=== PATIENT | female | born 1980 | race American Indian/Alaskan Native ===

== ENCOUNTER 2020-05-14 22:21 | Emergency (ER) | payer BC ==
[2020-05-14 23:27] LABS: Bilirubin,Urine NEG (Negative); Blood,Urine SM (Negative); Color,Urine Straw (Yellow); Protein,Urine <15 mg/dL mg/dL (Negative); Urobilinogen,Urine < 2.0 mg/dL (<2.0); WBC,Urine < 1.0 /HPF (0.0-6.0)
--- NOTE | 2020-05-15 00:02 | Emergency Department Report ---
ED Palpitations HPI - General Chief Complaint: Chest Pain Stated Complaint: HEART PAL/LEG AND ARM TINGLING/SHARP CHEST PAIN Time Seen by Provider: 05/14/20 23:22 Source: patient Mode of arrival: Ambulatory Limitations: No Limitations - History of Present Illness Initial Comments: 39-year-old female the past medical history with GERD and recurrent palpitations since February 2020 presents to the hospital complaining of palpitations this evening. Patient was about to go up the stairs when she started to feel her heart racing felt lightheaded. Her heart rate was 114 lasting for approximately 10 minutes to settle back down to the 90s. She denies associated shortness of breath, nausea, vomiting, or diaphoresis. Patient has had intermittent left-si ded sharp chest pain. She also complains of intermittent left arm and occasional left leg numbness since January 2020. Patient is receiving outpatient work-up. Earlier this month on April 19 she wore a Holter monitor for 48 hours in which she had no abnormal events. Patient states she did not have any palpitations during her Holter monitor use but has had them since the Holter monitor was discontinued. She denies control pill use, calf tenderness, leg edema, recent travel, history of PE/DVT. He states he has had a normal thyroid testing performed by her doctor and this is her first ED visit since symptoms have started intermittently - Related Data Allergies Allergy/AdvReac Type Severity Reaction Status Date / Time codeine Allergy Unknown Verified 05/14/20 22:37 ED Review of Systems ROS: Stated complaint: HEART PAL/LEG AND ARM TINGLING/SHARP CHEST PAIN Other details as noted in HPI Comment: All other systems reviewed and negative ED Past Medical Hx - Past Medical History Previous Medical History?: Yes Hx GERD: Yes Additional medical history: PALPITATIONS - Surgical History Past Surgical History?: No - Social History Smoking Status: Never Smoker Substance Use Type: None ED Physical Exam - General Limitations: No Limitations - Other Other exam information: General: No acute distress Head: Atraumatic Eyes: normal appearance ENT: Moist mucous membranes Neck: Normal appearance, no midline tenderness Chest: Clear to auscultation bilaterally, chest wall nontender CV: Regular rate and rhythm Abdomen: Soft, normal bowel sounds, nontender, nondistended, no rebound or guarding Back: Normal inspection Extremity: Normal inspection, full range of motion, no calf tenderness or leg edema Neuro: Alert O x 3, no facial asymmetry, speech clear, no gross motor sensory deficit, qyqwll-vcnp-bjkaso function intact, extraocular movement intact. Psych: Appropriate behavior Skin: No rash ED Course Vital Signs 05/14/20 05/14/20 05/14/20 22:28 23:24 23:37 Temperature 98.8 F Pulse Rate 102 H 102 H Respiratory 18 18 20 Rate Blood Pressure 136/86 O2 Sat by Pulse 98 92 Oximetry 05/14/20 05/15/20 05/15/20 23:45 00:01 00:15 Temperature Pulse Rate 83 89 79 Respiratory 22 25 H 20 Rate Blood Pressure 133/80 117/72 124/75 O2 Sat by Pulse 95 97 96 Oximetry 05/15/20 05/15/20 05/15/20 00:31 00:45 01:01 Temperature Pulse Rate 80 74 85 Respiratory 16 22 28 H Rate Blood Pressure 116/63 118/67 123/73 O2 Sat by Pulse 98 96 96 Oximetry 05/15/20 05/15/20 05/15/20 01:15 01:31 01:45 Temperature Pulse Rate 77 77 76 Respiratory 21 19 25 H Rate Blood Pressure 111/68 114/83 114/83 O2 Sat by Pulse 96 96 97 Oximetry ED Medical Decision Making - Lab Data Result diagrams: 05/14/20 22:50 05/14/20 22:50 Lab Results 05/14/20 05/14/20 05/14/20 Range/Units 22:50 22:50 23:38 WBC 9.5 (4.5-11.0) K/mm3 RBC 4.56 (3.65-5.03) M/mm3 Hgb 14.1 (10.1-14.3) gm/dl Hct 42.4 (30.3-42.9) % MCV 93 (79-97) fl MCH 31 (28-32) pg MCHC 33 (30-34) % RDW 14.0 (13.2-15.2) % Plt Count 406 (140-440) K/mm3 Lymph % (Auto) 24.7 (13.4-35.0) % [place] % (Auto) 3.2 (0.0-7.3) % Eos % (Auto) 2.2 (0.0-4.3) % Baso % (Auto) 1.1 (0.0-1.8) % Lymph # (Auto) 2.3 (1.2-5.4) K/mm3 [place] # (Auto) 0.3 (0.0-0.8) K/mm3 Eos # (Auto) 0.2 (0.0-0.4) K/mm3 Baso # (Auto) 0.1 (0.0-0.1) K/mm3 Seg Neutrophils % 68.8 (40.0-70.0) % Seg Neutrophils # 6.5 (1.8-7.7) K/mm3 D-Dimer (0-234) ng/mlDDU Sodium 141 (137-145) mmol/L Potassium 4.5 (3.6-5.0) mmol/L Chloride 103.7 (98-107) mmol/L Carbon Dioxide 27 (22-30) mmol/L Anion Gap 15 mmol/L BUN 12 (7-17) mg/dL Creatinine 1.0 (0.6-1.2) mg/dL Estimated GFR > 60 ml/min BUN/Creatinine Ratio 12 % Glucose 87 (65-100) mg/dL Calcium 9.1 (8.4-10.2) mg/dL Total Bilirubin 0.20 (0.1-1.2) mg/dL AST 18 (5-40) units/L ALT 17 (7-56) units/L Alkaline Phosphatase 65 (35-129) units/L Troponin T (0.00-0.029) ng/mL Total Protein 6.9 (6.3-8.2) g/dL Albumin 4.3 (3.9-5) g/dL Albumin/Globulin Ratio 1.7 % HCG, Qual (Negative) Urine Color (Yellow) Urine Turbidity (Clear) Urine pH (5.0-7.0) Ur Specific [place] (1.003-1.030) Urine Protein (Negative) mg/dL Urine Glucose (UA) (Negative) mg/dL Urine Ketones (Negative) mg/dL Urine Blood (Negative) Urine Nitrite (Negative) Urine Bilirubin (Negative) Urine Urobilinogen (<2.0) mg/dL Ur Leukocyte Esterase (Negative) Urine WBC (Auto) (0.0-6.0) /HPF Urine RBC (Auto) (0.0-6.0) /HPF U Epithel Cells (Auto) (0-13.0) /HPF Urine Opiates Screen Presumptive negative Urine Methadone Screen Presumptive negative Ur Barbiturates Screen Presumptive negative Ur Phencyclidine Scrn Presumptive negative Ur Amphetamines Screen Presumptive negative U Benzodiazepines Scrn Presumptive negative Urine Cocaine Screen Presumptive negative U Marijuana (THC) Screen Presumptive positive Drugs of Abuse Note Disclamer 05/14/20 05/15/20 05/15/20 Range/Units Unknown 00:00 00:29 WBC (4.5-11.0) K/mm3 RBC (3.65-5.03) M/mm3 Hgb (10.1-14.3) gm/dl Hct (30.3-42.9) % MCV (79-97) fl MCH (28-32) pg MCHC (30-34) % RDW (13.2-15.2) % Plt Count (140-440) K/mm3 Lymph % (Auto) (13.4-35.0) % [place] % (Auto) (0.0-7.3) % Eos % (Auto) (0.0-4.3) % Baso % (Auto) (0.0-1.8) % Lymph # (Auto) (1.2-5.4) K/mm3 [place] # (Auto) (0.0-0.8) K/mm3 Eos # (Auto) (0.0-0.4) K/mm3 Baso # (Auto) (0.0-0.1) K/mm3 Seg Neutrophils % (40.0-70.0) % Seg Neutrophils # (1.8-7.7) K/mm3 D-Dimer 135.00 (0-234) ng/mlDDU Sodium (137-145) mmol/L Potassium (3.6-5.0) mmol/L Chloride (98-107) mmol/L Carbon Dioxide (22-30) mmol/L Anion Gap mmol/L BUN (7-17) mg/dL Creatinine (0.6-1.2) mg/dL Estimated GFR ml/min BUN/Creatinine Ratio % Glucose (65-100) mg/dL Calcium (8.4-10.2) mg/dL Total Bilirubin (0.1-1.2) mg/dL AST (5-40) units/L ALT (7-56) units/L Alkaline Phosphatase (35-129) units/L Troponin T < 0.010 (0.00-0.029) ng/mL Total Protein (6.3-8.2) g/dL Albumin (3.9-5) g/dL Albumin/Globulin Ratio % HCG, Qual (Negative) Urine Color Straw (Yellow) Urine Turbidity Clear (Clear) Urine pH 6.0 (5.0-7.0) Ur Specific [place] 1.008 (1.003-1.030) Urine Protein <15 mg/dl (Negative) mg/dL Urine Glucose (UA) Neg (Negative) mg/dL Urine Ketones Neg (Negative) mg/dL Urine Blood Sm (Negative) Urine Nitrite Neg (Negative) Urine Bilirubin Neg (Negative) Urine Urobilinogen < 2.0 (<2.0) mg/dL Ur Leukocyte Esterase Neg (Negative) Urine WBC (Auto) < 1.0 (0.0-6.0) /HPF Urine RBC (Auto) 1.0 (0.0-6.0) /HPF U Epithel Cells (Auto) < 1.0 (0-13.0) /HPF Urine Opiates Screen Urine Methadone Screen Ur Barbiturates Screen Ur Phencyclidine Scrn Ur Amphetamines Screen U Benzodiazepines Scrn Urine Cocaine Screen U Marijuana (THC) Screen Drugs of Abuse Note 05/15/20 Range/Units 00:29 WBC (4.5-11.0) K/mm3 RBC (3.65-5.03) M/mm3 Hgb (10.1-14.3) gm/dl Hct (30.3-42.9) % MCV (79-97) fl MCH (28-32) pg MCHC (30-34) % RDW (13.2-15.2) % Plt Count (140-440) K/mm3 Lymph % (Auto) (13.4-35.0) % [place] % (Auto) (0.0-7.3) % Eos % (Auto) (0.0-4.3) % Baso % (Auto) (0.0-1.8) % Lymph # (Auto) (1.2-5.4) K/mm3 [place] # (Auto) (0.0-0.8) K/mm3 Eos # (Auto) (0.0-0.4) K/mm3 Baso # (Auto) (0.0-0.1) K/mm3 Seg Neutrophils % (40.0-70.0) % Seg Neutrophils # (1.8-7.7) K/mm3 D-Dimer (0-234) ng/mlDDU Sodium (137-145) mmol/L Potassium (3.6-5.0) mmol/L Chloride (98-107) mmol/L Carbon Dioxide (22-30) mmol/L Anion Gap mmol/L BUN (7-17) mg/dL Creatinine (0.6-1.2) mg/dL Estimated GFR ml/min BUN/Creatinine Ratio % Glucose (65-100) mg/dL Calcium (8.4-10.2) mg/dL Total Bilirubin (0.1-1.2) mg/dL AST (5-40) units/L ALT (7-56) units/L Alkaline Phosphatase (35-129) units/L Troponin T (0.00-0.029) ng/mL Total Protein (6.3-8.2) g/dL Albumin (3.9-5) g/dL Albumin/Globulin Ratio % HCG, Qual Negative (Negative) Urine Color (Yellow) Urine Turbidity (Clear) Urine pH (5.0-7.0) Ur Specific [place] (1.003-1.030) Urine Protein (Negative) mg/dL Urine Glucose (UA) (Negative) mg/dL Urine Ketones (Negative) mg/dL Urine Blood (Negative) Urine Nitrite (Negative) Urine Bilirubin (Negative) Urine Urobilinogen (<2.0) mg/dL Ur Leukocyte Esterase (Negative) Urine WBC (Auto) (0.0-6.0) /HPF Urine RBC (Auto) (0.0-6.0) /HPF U Epithel Cells (Auto) (0-13.0) /HPF Urine Opiates Screen Urine Methadone Screen Ur Barbiturates Screen Ur Phencyclidine Scrn Ur Amphetamines Screen U Benzodiazepines Scrn Urine Cocaine Screen U Marijuana (THC) Screen Drugs of Abuse Note Thyroid function tests normal - EKG Data -: EKG Interpreted by Me EKG shows normal: sinus rhythm, ST-T waves (No STEMI) Rate: normal (88) - Medical Decision Making 39-year-old female presents to the hospital planing of intermittent palpitations for the last 3 to 4 months. No aggravating alleviating factors reported. Patient did have outpatient Holter monitor test without acute findings. Patient reports a heart rate of 114 for approximately 10 minutes prior to arrival associated lightheadedness. Patient has a low pretest probability for pulmonary embolism without signs of DVT and a negative D-dimer. No signs of hypoxia. Patient's tachycardia 1 triage resolved spontaneously without intervention. Patient's other labs are unremarkable. Patient placed on a monitor during ED stay without any tachycardic or arrhythmia events. Patient also having intermittent left arm numbness without any focal neurologic deficits on examination. This is also been intermittent for the past 4 months Patient states she has an appointment with her doctor on Friday and will be provided a copy of her labs to take to her follow-up visit Critical Care Time: No Critical care attestation.: If time is entered above; I have spent that time in minutes in the direct care of this critically ill patient, excluding procedure time. ED Disposition Clinical Impression: Palpitations Disposition: -01 TO HOME OR SELFCARE Is pt being admited?: No Condition: Stable Instructions: Palpitations, Dofa-ul-Axes, Palpitations Additional Instructions: Avoid caffeine. Continue to monitor your heart rate and document episodes. Follow-up with your primary care doctor and maintenance and repair worker. Return if symptoms worsen as indicated by your discharge instructions. Referrals: DR JENNIFER [Other] - 2-3 Days HEART Score - HEART Score History: Slightly suspicious EKG: Normal Age: < 45 Risk factors: No known risk factors Troponin: Troponin T < 0.010 ng/mL (0.00-0.029) 05/15/20 00:00 Troponin: < normal limit HEART Score: 0
[2020-05-15 00:09] LABS: Amphetamine Screen,Urine PRESUMPTIVE NEGATIVE; Benzodiazepines Screen,Urine PRESUMPTIVE NEGATIVE; Cannabinoid Screen,Urine PRESUMPTIVE POSITIVE; Cocaine Screen,Urine PRESUMPTIVE NEGATIVE; Methadone Screen,Urine PRESUMPTIVE NEGATIVE; Opiate Screen,Urine PRESUMPTIVE NEGATIVE
[2020-05-15 00:11] LABS: Alanine Aminotransferase 17 units/L (7-56); Albumin 4.3 g/dL (3.9-5); BUN/Creatinine Ratio 12; Blood Urea Nitrogen 12 mg/dL (7-17); Calcium 9.1 mg/dL (8.4-10.2); Hemolysis Index 7
[2020-05-15 00:42] LABS: Basophils # (Auto) 0.1 K/mm3 (0.0-0.1); Basophils % (Auto) 1.1 % (0.0-1.8); Eosinophils # (Auto) 0.2 K/mm3 (0.0-0.4); Eosinophils % (Auto) 2.2 % (0.0-4.3); Hematocrit 42.4 % (30.3-42.9); Hemoglobin 14.1 gm/dl (10.1-14.3); Lymphocytes # (Auto) 2.3 K/mm3 (1.2-5.4); Lymphocytes % (Auto) 24.7 % (13.4-35.0); Mean Corpuscular HGB Conc 33 % (30-34); Mean Corpuscular Volume 93 fl (79-97); Monocytes # (Auto) 0.3 K/mm3 (0.0-0.8); Monocytes % (Auto) 3.2 % (0.0-7.3); Platelet Count 406 K/mm3 (140-440); Red Blood Count 4.56 M/mm3 (3.65-5.03)
[2020-05-15 01:25] LABS: Free T4 (Free Thyroxine) 1.41 ng/dL (0.76-1.46)
[2020-05-15 01:51] VITALS: BP 114/83
--- NOTE | 2020-05-17 08:42 | Electrocardiograph Report ---
[facility] [place] Test Date: 2020-05-14 Test Time: 22:32:49 Pat Name: SUSANNE HEATH Department: Room: Gender: F Stonecutter: DAIN : 1980 Requested By: NATHALIA TSE Order Number: [id number] Reading MD: Cory Mistry Measurements Intervals [place] Rate: 88 P: 49 NM: 161 QRS: 48 QRSD: 90 T: 32 QT: 364 QTc: 440 Interpretive Statements Sinus rhythm No previous ECG available for comparison Electronically Signed On 05-17-2020 5:41:52 PDT by Cory Mistry
== END 2020-05-15 01:51 | disposition home or self-care (01) ==
LOC: ED 22:21
DX: R00.2 Palpitations (principal); K21.9 Gastro-esophageal reflux disease without esophagitis; Z88.6 Allergy status to analgesic agent
CPT/HCPCS: 36415; 80053; 80307; 81001; 84439; 84443; 84484; 84703; 85025; 85379; 93005; 99283

== ENCOUNTER 2021-03-08 10:39 | Emergency (ER) | payer BC, OTHER ==
[2021-03-08] MEDS ORDERED: ACETAMINOPHEN 325 MG TAB PO ONE (12:11)
[2021-03-08] MEDS ORDERED: PANTOPRAZOLE 40 MG TAB PO ONE (12:11)
--- NOTE | 2021-03-08 12:12 | Emergency Department Report ---
ED General Adult HPI - General Chief complaint: Chest Pain Stated complaint: HEART PALPITATIONS PUI?: No Time Seen by Provider: 03/08/21 12:01 Source: patient, RN notes reviewed, old records reviewed Mode of arrival: Ambulatory Limitations: No Limitations - History of Present Illness Initial comments: The patient was evaluated in the emergency department for symptoms described in the history of present illness. He/she was evaluated in the context of the global COVID-19 pandemic, which necessitated consideration that the patient might be at risk for infection with the virus that causes COVID-19. Institutional protocols and algorithms that pertain to the evaluation of patients at risk for COVID-19 are in a state of rapid change based on information released by regulatory bodies including the CDC and federal and state organizations. These policies and algorithms were followed during the patient's care in the emergency department. Please note that these policies, procedures and recommendations changed on a rapid basis. The patient is a 40-year-old female. She is not known to myself previously. She is right-hand dominant. She was seen in this emergency room last year with a complaint of palpitations and chest discomfort by one of my colleagues. She had an extensive work-up at that time, which showed unremarkable TSH, normal troponin, negative D-dimer, and essentially unremarkable laboratory evaluation, with the exception of positive urine drug screen for marijuana. The patient also reports that she follows up with an outpatient industrial manufacturing technician at [facility] Today, the patient presents to the ER with a complaint of nontraumatic chest wall tightness, palpitations, tingling in her bilateral upper extremities and anxiety. Patient admits to mild headache. She reports no marijuana consumption. She denies oral contraceptive use, leg pain, leg swelling, travel, immobilization, DVT/PE risk factors. She is not sure if she is . She is not COVID-19 vaccinated. Denies abdominal pain, vomiting, diaphoresis. -: Gradual, days(s) Location: head, chest Quality: aching Improves with: rest Worsens with: other (Palpation) - Related Data Allergies Allergy/AdvReac Type Severity Reaction Status Date / Time codeine Allergy Unknown Verified 05/14/20 22:37 ED Review of Systems ROS: Stated complaint: HEART PALPITATIONS Other details as noted in HPI Constitutional: denies: fever Eyes: denies: eye discharge ENT: denies: epistaxis Respiratory: denies: cough Cardiovascular: palpitations, other (Chest wall pressure, palpitation) Gastrointestinal: denies: nausea, vomiting, hematemesis, melena, hematochezia Genitourinary: denies: dysuria Neurological: headache, paresthesias Psychiatric: anxiety ED Past Medical Hx - Past Medical History Hx GERD: Yes Additional medical history: PALPITATIONS - Social History Smoking Status: Never Smoker Substance Use Type: None ED Physical Exam - General Limitations: No Limitations General appearance: alert, in no apparent distress - Head Head exam: Present: atraumatic, normocephalic - Eye Eye exam: Present: normal appearance, EOMI. Absent: nystagmus - ENT ENT exam: Present: normal exam, normal orophraynx, mucous membranes moist, normal external ear exam - Neck Neck exam: Present: normal inspection, full ROM. Absent: tenderness, meningismus - Respiratory Respiratory exam: Present: normal lung sounds bilaterally, chest wall tenderness. Absent: respiratory distress, wheezes, rales, rhonchi, stridor - Cardiovascular Cardiovascular Exam: Present: regular rate, normal rhythm, normal heart sounds. Absent: bradycardia, tachycardia, irregular rhythm, systolic murmur, diastolic murmur, rubs, gallop - GI/Abdominal GI/Abdominal exam: Present: soft. Absent: distended, tenderness, guarding, rebound, rigid, pulsatile mass - Extremities Exam Extremities exam: Present: normal inspection, full ROM, other (2+ pulses noted in the bilateral upper and lower extremities. There is no palpable cord. negative Homans sign. Muscular compartments are soft. The pelvis is stable.). Absent: pedal edema, calf tenderness - Back Exam Back exam: Present: normal inspection, full ROM. Absent: tenderness, CVA tenderness (R), CVA tenderness (L), paraspinal tenderness, vertebral tenderness - Neurological Exam Neurological exam: Present: alert, oriented X3, normal gait, reflexes normal, other (No facial droop. Tongue midline. Extraocular movements intact bilaterally. Facial sensation intact to light touch in V1, V2, V3 distribution bilaterally. 5 and a 5 strength in 4 extremities. Sensation intact to light touch in 4 extremities.). Absent: motor sensory deficit (Sensation intact to light touch and proprioception in the bilateral upper extremities. Sensation intact to light touch in the bilateral lower extremities.) - Psychiatric Psychiatric exam: Present: anxious - Skin Skin exam: Present: warm, dry, intact, normal color. Absent: rash ED Course Vital Signs 03/08/21 11:36 Temperature 98.3 F Pulse Rate 101 H Respiratory 18 Rate Blood Pressure 135/76 O2 Sat by Pulse 100 Oximetry - Reevaluation(s) Reevaluation #1: 03/08/21 14:21 Differential diagnosis, including not limited to: Costochondritis, encounter for negative test, electrolyte derangement, myocarditis, pericarditis, coronary artery disease, anxiety, conversion disorder, encounter for medical screening examination Assessment and plan: 40-year-old female, who was afebrile, with reassuring vital signs, clinically sober at this time, with a GCS of 15, who is not currently tachycardic, tachypneic or hypoxic, who denies DVT and pulmonary embolism risk factors, who is low risk by Wells criteria for pulmonary embolism, EKG unchanged x and from prior, troponin negative x 1 in the context of 2 days of, therefore, myocardial infarction excluded/ruled out, patient low risk for major adverse cardiac event as per heart score. Patient has equal pulses in the upper and lower extremities, no pulsatile abdominal mass, and an unremarkable x-ray of the chest, therefore, aortic disease is very unlikely. Patient at low risk for major adverse cardiac event as per heart score. Patient has reproducible chest wall pain on my examination. Her EKG is unchanged from prior. Her laboratory studies are nonactionable. Her chest x-ray is unremarkable. On multiple repeat evaluations, the patient is resting comfortably on her stretcher, and in no acute distress. Counseled that an emergent condition does not appear to be present at this time, and she may follow-up with her outpatient primary care doctor or industrial manufacturing technician. She does not appear to have any appreciable neurologic deficits on my examination. She is also noted to be playing on a cellular phone multiple times during repeat evaluations. I do not suspect COVID at this time, counseled patient to complete outpatient COVID-19 vaccination series. Given negative troponin, normal CK, myocarditis, pericarditis very unlikely. Tachycardia is also resolved at this time ED Medical Decision Making - Lab Data Result diagrams: 03/08/21 Unknown 03/08/21 Unknown Vital Signs 03/08/21 11:36 Temperature 98.3 F Pulse Rate 101 H Respiratory 18 Rate Blood Pressure 135/76 O2 Sat by Pulse 100 Oximetry Lab Results 03/08/21 03/08/21 03/08/21 Range/Units Unknown Unknown Unknown WBC 7.2 (4.5-11.0) K/mm3 RBC 4.56 (3.65-5.03) M/mm3 Hgb 13.0 (10.1-14.3) gm/dl Hct 41.1 (30.3-42.9) % MCV 90 (79-97) fl MCH 29 (28-32) pg MCHC 32 (30-34) % RDW 14.6 (13.2-15.2) % Plt Count 374 (140-440) K/mm3 Total Creatine Kinase 81 (30-135) units/L Troponin T < 0.010 (0.00-0.029) ng/mL HCG, Quant < 2 (0-4) mIU/mL - EKG Data -: EKG Interpreted by Sd EKG shows normal: sinus rhythm Rate: normal - EKG Data 03/08/21 14:20 The EKG is interpreted at 11: 50 EKG today as compared to prior EKG from April 2020 Sinus rhythm, 80 bpm. Normal axis, normal intervals, normal P wave axis. Unremarkable EKG, not a STEMI - Radiology Data Radiology results: pending, report reviewed, image reviewed CHEST 2 VIEWS INDICATION / CLINICAL INFORMATION: chest pain. COMPARISON: None available. FINDINGS: SUPPORT DEVICES: None. HEART / MEDIASTINUM: No significant abnormality. LUNGS / PLEURA: No significant pulmonary or pleural abnormality. No pneumothorax. ADDITIONAL FINDINGS: No significant additional findings. IMPRESSION: 1. No acute findings. Signer Name: Viral Fletcher MD Signed: 03/08/2021 1:24 PM Workstation Name: [id number] Critical care attestation.: If time is entered above; I have spent that time in minutes in the direct care of this critically ill patient, excluding procedure time. ED Disposition Clinical Impression: Chest wall pain, History of palpitations, COVID-19 vaccination not done, test negative Disposition: 01 HOME / SELF CARE / HOMELESS Is pt being admited?: No Does the pt Need Aspirin: No Condition: Good Instructions: Nonspecific Chest Pain, Adult Additional Instructions: Patient may take [id number] Tylenol and/or Motrin as needed for physical pain. Avoid consumption of heavy and spicy foods. Make certain to get 8 hours of uninterrupted good quality sleep each evening. Avoid consumption of marijuana, tobacco, and alcohol. Avoid excessive cell phone and electronics utilization. Follow-up with your outpatient primary care doctor or industrial manufacturing technician within the next 7 to 10 days. Please return to the emergency room right away with new pain, worsened pain, migration of pain, projectile vomiting, change in mental status, confusion, inability tolerate liquid feeds, new, worsened or different symptoms not present on the initial emergency room evaluation We also recommend that the patient complete outpatient COVID-19 vaccination series. Referrals: ODETTE RODRIGUEZ RN [Primary Care Provider] - 3-5 Days [facility] [place] [Provider Group] - 3-5 Days Forms: Work/School Release Form(ED) Heart Score - HEART Score History: Slightly suspicious EKG: Normal Age: < 45 Risk factors: No known risk factors Troponin: < normal limit HEART Score: 0 - EKG Read Time Time EKG Completed: 11:45 EKG Read Time: 11:50 - Critical Actions Critical Actions: 0-3 pts:0.9-1.7%risk of adverse cardiac event.Candidate for discharge
[2021-03-08 13:34] LABS: Hematocrit 41.1 % (30.3-42.9); Mean Corpuscular HGB Conc 32 % (30-34); Mean Corpuscular Volume 90 fl (79-97); Platelet Count 374 K/mm3 (140-440); Red Blood Count 4.56 M/mm3 (3.65-5.03); Red Cell Distribution Width 14.6 % (13.2-15.2)
[2021-03-08] MEDS ORDERED: IBUPROFEN 400 MG TAB PO ONE (14:17)
--- NOTE | 2021-03-08 14:29 | XRay Report ---
CHEST 2 VIEWS INDICATION / CLINICAL INFORMATION: chest pain. COMPARISON: None available. FINDINGS: SUPPORT DEVICES: None. HEART / MEDIASTINUM: No significant abnormality. LUNGS / PLEURA: No significant pulmonary or pleural abnormality. No pneumothorax. ADDITIONAL FINDINGS: No significant additional findings. IMPRESSION: 1. No acute findings. Signer Name: Viral Fletcher MD Signed: 03/08/2021 2:24 PM Workstation Name: [id number] [id number]
[2021-03-08 14:33] LABS: Blood Urea Nitrogen 8 mg/dL (7-17); Hemolysis Index 23
[2021-03-08 14:34] LABS: BUN/Creatinine Ratio 11
[2021-03-08 15:46] VITALS: BP 137/71
== END 2021-03-08 15:45 | disposition home or self-care (01) ==
LOC: ED 10:39
DX: R07.89 Other chest pain (principal); R00.2 Palpitations; Z32.02 Encounter for pregnancy test, result negative; K21.9 Gastro-esophageal reflux disease without esophagitis; Z98.890 Other specified postprocedural states; Z79.899 Other long term (current) drug therapy
CPT/HCPCS: 36415; 71046; 80048; 82550; 83735; 84484; 84702; 85027; 93005; 99283; 99284